=== PATIENT | male | born 2000 | race Two or more races ===

== ENCOUNTER 2024-09-06 09:29 | Emergency (ER) | payer MEDICAID, OTHER ==
[~2024-09-06] VITALS: Ht 170.2 cm; Wt 103.2 kg
[2024-09-06 09:40] VITALS: BP 164/70; PULSE 107; O2SAT 99
[2024-09-06] MEDS ORDERED: ZOFR4T PO (10:49)
[2024-09-06] MEDS ORDERED: FAMO20TA10 PO (10:49)
--- NOTE | 2024-09-06 10:50 | ED.PDOC ---
History of Present Illness HPI Comments 24-year-old male, Hx of anxiety, cholecystectomy, IBS, obesity, and nicotine vape, alcohol, and marijuana use, presents with complaint of left sided abdominal and back pain and diarrhea was 4 days, today. Patient endorses on sudden unprovoked onset of symptoms, intermittently. He states on pain starting in his left upper quadrant region and radiating down to his left lower quadrant area and back, simultaneously. He reports no additional relevant a pertinent history, aside from history of cancer. Patient is having any nausea, vomiting, constipation, bloody stools, urinary symptoms, fever, chills, or other associated symptoms or modifying at this time. At time of assessment, patient was found with elevated blood pressure 164/70, with patient endorsing no HTN in the past. Chief Complaint: Abdominal Pain Time Seen by MD: 10:00 Primary Care Provider: GALINA Reviewed Notes: Nurses Notes, Medications, Allergies Allergies: Coded Allergies: NO KNOWN ALLERGIES (Unverified , 09/06/24) Information Source: Patient Mode of Arrival: Ambulatory Severity: Moderate Timing: Days Duration: Since onset Prehospital treatment: None Past Medical History PAST MEDICAL HISTORY: Anxiety Past Medical History (Other): Obesity, IBS Surgical History: Cholecystectomy Social History Smoker: Other (vape) Alcohol: Occasionally Drugs: Marijuana Lives In: Home Gastrointestinal: reports: abdominal pain, diarrhea Musculoskeletal: reports: back pain All Other Systems: Reviewed and Negative (Negative unless otherwise stated above or in HPI) Physical Exam General Appearance: No Apparent Distress, Obese HEENT: Normal ENT Inspection, Pharynx Normal, TMs Normal Neck: Full Range of Motion, Non-Tender, Normal, Normal Inspection Respiratory: Chest Non-Tender, Lungs Clear, No Accessory Muscle Use, No Respiratory Distress, Normal Breath Sounds Cardiovascular: No Edema, No JVD, No Murmur, No Gallop, Normal Peripheral Pulses, Regular Rate/Rhythm Breast Exam: Deferred Gastrointestinal: No Organomegaly, Non Tender, No Pulsatile Mass, Normal Bowel Sounds, Soft Genitalia: Deferred Pelvic: Deferred Rectal: Deferred Extremities: No calf tenderness, Normal capillary refill, Normal inspection, Normal range of motion, Non-tender, No pedal edema Musculoskeletal : Apperance: Normal Neurologic: Alert, resident services manager II-XII nml as Tested, No Motor Deficits, Normal Affect, Normal Mood, No Sensory Deficits Cerebellar Function: Normal Reflexes: Normal Skin: Dry, Normal Color, Warm Lymphatic: No Adenopathy Was a procedure done? Was a procedure done?: No Differential Dx Considerations may include: GERD, marijuana abuse, IBS, gastritis, gastroenteritis, spoiled food X-Ray, Labs, Meds, VS Vital Signs Date Time Temp Pulse Resp B/P (MAP) Pulse Ox O2 Delivery O2 Flow Rate FiO2 09/06/24 09:40 99.0 107 16 164/70 (101) 99 Time of 1ST Reevaluation: 10:30 Reevaluation 1ST: Unchanged Patient Education/Counseling: Diagnosis, Treatment Family Education/Counseling: No Family Present Departure 1 Departure Time of Disposition: 10:45 Impression: Primary Impression: GERD (gastroesophageal reflux disease) Additional Impressions: Marijuana abuse IBS (irritable bowel syndrome) Disposition: 01 HOME / SELF CARE / HOMELESS Condition: Stable Additional Instructions: Takes Zofran and Pepcid as prescribed; cease any further marijuana use. If conditions got worse, go see your primary care physician. Critical Care Note Critical Care Time?: No Stability Stability form required: No Heart Score Heart Score: Heart Score Response (Comments) Value History N/A 0 EKG N/A 0 Age N/A 0 Risk Factors N/A 0 Troponin N/A 0 Total 0 I personally scribed for STEPHEN BENEDICT MD ([email or web address]) on 09/06/24 at 10:50. Electronically submitted by Yao Pagan ([email or web address]). STEPHEN BENEDICT MD Sep 06, 2024 10:50
[2024-09-06 11:06] VITALS: RESP 18
== END 2024-09-06 11:10 | disposition home or self-care (01) ==
LOC: ER 09:29
DX: K21.9 Gastro-esophageal reflux disease without esophagitis (principal); K58.9 Irritable bowel syndrome, unspecified; F12.10 Cannabis abuse, uncomplicated; F41.9 Anxiety disorder, unspecified; F17.290 Nicotine dependence, other tobacco product, uncomplicated; E66.9 Obesity, unspecified; Z68.35 Body mass index [BMI] 35.0-35.9, adult; Z90.49 Acquired absence of other specified parts of digestive tract